=== PATIENT | male | born 1950 | race Caucasian/White ===

== ENCOUNTER → 2020-06-27 | Outpatient (CLI) | payer BC | LOC: RAD 08:56 | PROVIDERS: ATTEND Otolaryngology | DX: R13.12 Dysphagia, oropharyngeal phase (principal) ==

== ENCOUNTER → 2020-07-16 | Outpatient (CLI) | payer BC | LOC: RAD 10:01 | PROVIDERS: ATTEND Otolaryngology | DX: R13.12 Dysphagia, oropharyngeal phase (principal) ==